=== PATIENT | male | born 1975 | race Caucasian/White ===

== ENCOUNTER → 2016-12-28 | Outpatient (CLI) | payer BC ==
[~2016-12-28] MED LIST: CIPR500T19; PERC7.5T8; TUMS500C; TYLENOL #3
[2016-12-28 09:17] LABS: BASO # 0.1 10^3/uL (0.0-0.2); BASO % 0.6 % (0.0-1.0); EOS # 0.2 10^3/uL (0.0-0.50); IMMATURE GRANULOCYTE % 0.4 % (0-0); LYMPH # 2.7 10^3/uL (1.5-4.5); LYMPH % 32.7 % (24.0-44.0); MEAN CORPUSCULAR HGB CONC 34.3 g/dl (32.0-36.5); MEAN CORPUSCULAR VOLUME 93.2 fl (80.0-96.0); MONO # 0.5 10^3/uL (0.0-0.8); MONO % 6.5 % (0.0-5.0); NEUTROPHILS # 4.7 10^3/uL (1.8-7.7); NEUTROPHILS % 57.8 % (36.0-66.0); PLATELET COUNT, AUTOMATED 304 10^3/uL (150-450); RED CELL DISTRIBUTION WIDTH 12.2 % (11.5-14.5); WHITE BLOOD COUNT 8.2 10^3/uL (4.0-10.0)
[2016-12-28 09:51] LABS: ALBUMIN 3.9 GM/DL (3.2-5.2); ALBUMIN/GLOBULIN RATIO 1.26 (1.00-1.93); ALKALINE PHOSPHATASE 73 U/L (45-117); ALT/SGPT 57 U/L (12-78); ANION GAP 5 MEQ/L (8-16); AST/SGOT 23 U/L (7-37); BILIRUBIN,TOTAL 0.4 MG/DL (0.2-1.0); BLOOD UREA NITROGEN 11 MG/DL (7-18); CALCIUM LEVEL 9.1 MG/DL (8.5-10.1); CARBON DIOXIDE LEVEL 29 MEQ/L (21-32); CHLORIDE LEVEL 107 MEQ/L (98-107); CHOLESTEROL LEVEL 171 MG/DL (<200); CREATININE FOR GFR 0.87 MG/DL (0.70-1.30); FREE T4 0.89 NG/DL (0.76-1.46); GLOMERULAR FILTRATION RATE > 60.0 (>60); GLUCOSE, FASTING 91 MG/DL (70-105); POTASSIUM SERUM 4.8 MEQ/L (3.5-5.1); SODIUM LEVEL 141 MEQ/L (136-145); TRIGLYCERIDES LEVEL 85 MG/DL (<150)
== END ==
LOC: M WUC 08:31
PROVIDERS: ATTEND Nurse Practitioner Family
DX: R53.83 Other fatigue (principal); Z13.220 Encounter for screening for lipoid disorders; I10 Essential (primary) hypertension

== ENCOUNTER → 2017-04-20 | Outpatient (CLI) | payer BC ==
[2017-04-20 17:25] LABS: TOTAL 25(OH) VITAMIN D 20.3 NG/ML (30.0-100.0)
== END ==
LOC: M WUC 10:45
DX: E55.9 Vitamin D deficiency, unspecified (principal)

== ENCOUNTER → 2017-10-24 | Outpatient (CLI) | payer BC ==
[2017-10-24 13:39] LABS: BASO % 0.5 % (0.0-1.0); EOS # 0.1 10^3/uL (0.0-0.50); EOS % 1.1 % (0.0-3.0); HEMATOCRIT 46.3 % (42.0-52.0); HEMOGLOBIN 15.9 g/dl (13.5-17.5); IMMATURE GRANULOCYTE % 0.5 % (0-3.0); LYMPH # 2.4 10^3/uL (1.5-4.5); LYMPH % 28.1 % (24.0-44.0); MEAN CORPUSCULAR HEMOGLOBIN 31.7 pg (27.0-33.0); MEAN CORPUSCULAR HGB CONC 34.3 g/dl (32.0-36.5); MEAN CORPUSCULAR VOLUME 92.4 fl (80.0-96.0); MONO # 0.5 10^3/uL (0.0-0.8); MONO % 6.1 % (0.0-5.0); NEUTROPHILS # 5.3 10^3/uL (1.8-7.7); NEUTROPHILS % 63.7 % (36.0-66.0); PLATELET COUNT, AUTOMATED 294 10^3/uL (150-450); RED BLOOD COUNT 5.01 10^6/uL (4.30-6.10); RED CELL DISTRIBUTION WIDTH 12.1 % (11.5-14.5); WHITE BLOOD COUNT 8.4 10^3/uL (4.0-10.0)
[2017-10-24 14:38] LABS: ALBUMIN 4.1 GM/DL (3.2-5.2); ALBUMIN/GLOBULIN RATIO 1.21 (1.00-1.93); ALKALINE PHOSPHATASE 80 U/L (45-117); ALT/SGPT 38 U/L (12-78); ANION GAP 10 MEQ/L (8-16); AST/SGOT 19 U/L (7-37); BILIRUBIN,TOTAL 0.5 MG/DL (0.2-1.0); BLOOD UREA NITROGEN 12 MG/DL (7-18); CARBON DIOXIDE LEVEL 28 MEQ/L (21-32); CHLORIDE LEVEL 104 MEQ/L (98-107); CREATININE FOR GFR 0.84 MG/DL (0.70-1.30); GLOMERULAR FILTRATION RATE > 60.0 (>60); GLUCOSE, FASTING 85 MG/DL (70-100); POTASSIUM SERUM 4.6 MEQ/L (3.5-5.1); SODIUM LEVEL 142 MEQ/L (136-145); TOTAL 25(OH) VITAMIN D 50.4 NG/ML (30.0-100.0); TOTAL PROTEIN 7.5 GM/DL (6.4-8.2)
== END ==
LOC: M WUC 10:46
DX: I10 Essential (primary) hypertension (principal); E55.9 Vitamin D deficiency, unspecified
CPT/HCPCS: 80053

== ENCOUNTER → 2018-04-25 | Outpatient (CLI) | payer BC ==
[2018-04-25 16:59] LABS: BASO % 0.3 % (0.0-1.0); EOS # 0.1 10^3/uL (0.0-0.50); HEMATOCRIT 45.1 % (42.0-52.0); HEMOGLOBIN 15.3 g/dl (13.5-17.5); LYMPH # 2.9 10^3/uL (1.5-4.5); LYMPH % 25.4 % (24.0-44.0); MEAN CORPUSCULAR HEMOGLOBIN 31.5 pg (27.0-33.0); MEAN CORPUSCULAR HGB CONC 33.9 g/dl (32.0-36.5); MEAN CORPUSCULAR VOLUME 92.8 fl (80.0-96.0); MONO # 0.8 10^3/uL (0.0-0.8); MONO % 6.7 % (0.0-5.0); NEUTROPHILS # 7.6 10^3/uL (1.8-7.7); NEUTROPHILS % 66.1 % (36.0-66.0); PLATELET COUNT, AUTOMATED 323 10^3/uL (150-450); RED BLOOD COUNT 4.86 10^6/uL (4.30-6.10); WHITE BLOOD COUNT 11.5 10^3/uL (4.0-10.0)
[2018-04-25 17:19] LABS: ALBUMIN 3.8 GM/DL (3.2-5.2); ALT/SGPT 41 U/L (12-78); BILIRUBIN,TOTAL 0.3 MG/DL (0.2-1.0); BLOOD UREA NITROGEN 14 MG/DL (7-18); CARBON DIOXIDE LEVEL 29 MEQ/L (21-32); CHLORIDE LEVEL 106 MEQ/L (98-107); CREATININE FOR GFR 0.92 MG/DL (0.70-1.30); GLOMERULAR FILTRATION RATE > 60.0 (>60); GLUCOSE, FASTING 93 MG/DL (70-100); POTASSIUM SERUM 4.4 MEQ/L (3.5-5.1); SODIUM LEVEL 142 MEQ/L (136-145); TOTAL 25(OH) VITAMIN D 26.6 NG/ML (30.0-100.0); TOTAL PROTEIN 6.7 GM/DL (6.4-8.2)
== END ==
LOC: M WUC 14:26
PROVIDERS: ATTEND Nurse Practitioner Family
DX: I10 Essential (primary) hypertension (principal); E55.9 Vitamin D deficiency, unspecified

== ENCOUNTER 2019-10-01 11:13 | Inpatient (IN) | payer BC ==
[~2019-10-01] VITALS: Ht 170.2 cm; Wt 132.5 kg
[2019-10-01] MEDS ORDERED: [UNRECOGNIZED DRUG - REMARK] (11:23)
[2019-10-01 12:21] LABS: BASO % 0.4 % (0.0-1.0); EOS # 0.1 10^3/uL (0.0-0.5); EOS % 1.3 % (0.0-3.0); HEMATOCRIT 47.9 % (42.0-52.0); HEMOGLOBIN 16.2 g/dl (13.5-17.5); LYMPH # 1.1 10^3/uL (1.5-5.0); LYMPH % 13.1 % (24.0-44.0); MEAN CORPUSCULAR HEMOGLOBIN 31.9 pg (27.0-33.0); MEAN CORPUSCULAR HGB CONC 33.8 g/dl (32.0-36.5); MEAN CORPUSCULAR VOLUME 94.3 fl (80.0-96.0); MONO # 0.5 10^3/uL (0.0-0.8); MONO % 6.2 % (0.0-5.0); NEUTROPHILS # 6.7 10^3/uL (1.5-8.5); NEUTROPHILS % 78.5 % (36.0-66.0); PLATELET COUNT, AUTOMATED 259 10^3/uL (150-450); RED BLOOD COUNT 5.08 10^6/uL (4.30-6.10); WHITE BLOOD COUNT 8.5 10^3/uL (4.0-10.0)
[2019-10-01 12:44] LABS: INR 0.96
[2019-10-01 12:45] LABS: PARTIAL THROMBOPLASTIN TIME 29.8 SECONDS (25.0-38.4)
[2019-10-01 13:22] LABS: ALT/SGPT 1097 U/L (12-78); BLOOD UREA NITROGEN 7 MG/DL (7-18); CALCIUM LEVEL 9.2 MG/DL (8.5-10.1); CARBON DIOXIDE LEVEL 26 MEQ/L (21-32); CHLORIDE LEVEL 104 MEQ/L (98-107); CREATININE FOR GFR 0.87 MG/DL (0.70-1.30); GLOMERULAR FILTRATION RATE > 60.0 (>60); GLUCOSE, FASTING 120 MG/DL (70-100); POTASSIUM SERUM 4.1 MEQ/L (3.5-5.1); SODIUM LEVEL 136 MEQ/L (136-145)
[2019-10-01 13:23] LABS: ALBUMIN 3.8 GM/DL (3.2-5.2); BILIRUBIN,DIRECT 4.4 MG/DL (0.0-0.2); BILIRUBIN,TOTAL 5.7 MG/DL (0.2-1.0); CHOLESTEROL LEVEL 163 MG/DL (<200); CHOLESTEROL RISK RATIO 4.657 (<5); HDL CHOLESTEROL 35 MG/DL (>40); LDL CHOLESTEROL 96 MG/DL (<100); LIPASE 70 U/L (73-393); NON-HDL-C 128 MG/DL; TOTAL PROTEIN 7.7 GM/DL (6.4-8.2); TRIGLYCERIDES LEVEL 159 MG/DL (<150)
--- NOTE | 2019-10-01 13:23 | REPVR ---
PROCEDURE INFORMATION: Exam: US Abdomen, Limited; Right Upper Quadrant Exam date and time: 10/01/2019 12:31 PM Age: 44 years old Clinical indication: Abdominal pain; Additional info: Upper abdominal pain; ? Pancreatitis TECHNIQUE: Imaging protocol: US abdomen. Real time ultrasound with image documentation. Limited exam focused on the right upper quadrant. COMPARISON: No relevant prior studies available. FINDINGS: Liver: Liver echogenicity is overall hyperechoic suggesting diffuse fatty liver change or chronic liver disease. No focal area of abnormal echogenicity. Gallbladder: The gallbladder has been surgically removed. Common bile duct: The common bile duct is dilated at 11 mm, but this is most likely within expected limits given prior cholecystectomy. Pancreas: Visualized pancreas is unremarkable. Pancreas is mostly obscured by shadowing bowel gas. Right kidney: The right kidney measures 13.3 x 5.9 x 6.3 cm. No hydronephrosis. No shadowing echogenic foci to suggest renal calculi. Intraperitoneal space: No free fluid. IMPRESSION: 1. Findings suggesting diffuse fatty liver change or chronic liver disease. 2. Dilated common bile duct at 11 mm, most likely within expected limits given prior cholecystectomy. Comparison CT abdomen and pelvis from 09/23/2007 and comparison abdominal ultrasound from 09/22/2007 have been requested but are unavailable on PACs. Electronically signed by: Hilda Seo On 10/01/2019 13:23:28 PM
[2019-10-01] MEDS ORDERED: FLON1SPR NARES (15:43)
[2019-10-01] MEDS ORDERED: CETI-24 PO (15:43)
[2019-10-01] MEDS ORDERED: [UNRECOGNIZED DRUG - OTHER] PO (15:43)
[2019-10-01] MEDS ORDERED: B-12100021 PO (15:43)
[2019-10-01] MEDS ORDERED: VITA100016 PO (15:43)
[2019-10-01] MEDS: LR 1,000 ML IV SCH ×2 (15:44→20:30)
--- NOTE | 2019-10-01 17:03 | HPEPDOC ---
[facility] Medical History & Physical Date of Admission Oct 01, 2019 Date of Service: Oct 01, 2019 Attending Physician: MALIKA BEYER MD History and Physical CHIEF COMPLAINT: Epigastic abdominal pain HISTORY OF PRESENT ILLNESS: Mr. Guerrero is a pleasant 44 yo man with a hx of open cholecystectomy and CBD stenting who presented to [facility] ED today with a 2 days history of moderate epigastric pain, pale stools and darkened urine. He further reports worsening diffuse pruritis. He denies chest pain, fevers, chills, n/v/d. He denies hemoptysis or blood in stool. He denies excess or chronic etoh use. PAST MEDICAL HISTORY: 1. acute cholecystitis PAST SURGICAL HISTORY: 1. open cholecystecomy 2. CBD stent placement SOCIAL HISTORY: Chews tobacco Occasional etoh use FAMILY HISTORY: Mother - DM2 Father - malignancy, unable to specify ALLERGIES: Please see below. REVIEW OF SYSTEMS: CONSTITUTIONAL: malaise HEENT: none CARDIOVASCULAR: RESPIRATORY: none. GASTROINTESTINAL: RUQ and epigastric abdominal pain 07/17. Pale, beige stool GENITOURINARY: dark urine. SKIN: diffuse pruritis. MUSCULOSKELETAL: none. NEUROLOGICAL: none. PSYCHIATRIC: none. ENDOCRINE: none. HEMATOLOGIC/LYMPHATIC: none. HOME MEDICATIONS: Please see below. PHYSICAL EXAMINATION: VITAL SIGNS: please see below. GENERAL APPEARANCE: NAD. HEENT: mild scleral icterus. PERRLA. CARDIOVASCULAR: RRR, normal S1, S2. LUNGS: CTAB, good inspiratory effort. ABDOMEN: RUQ open cholecystectomy scar, laparoscopic port sca. Pain to palpation of RUQ. BS+. Obese abdomen MUSCULOSKELETAL: normal ROM, no joint deformity. EXTREMITIES: no edema NEUROLOGICAL: AAO x 3, no focal neurological deficits. PSYCHIATRIC: calm, pleasant, cooperative. LABORATORY DATA: See below. IMAGING: Liver Ultrasound on 10/01/19 IMPRESSION: 1. Findings suggesting diffuse fatty liver change or chronic liver disease. 2. Dilated common bile duct at 11 mm, most likely within expected limits given prior cholecystectomy. MICROBIOLOGY: Please see below. ASSESSMENT: . PLAN: 1. Conjugated hyperbilirubinemia: suspect common bile duct obstruction. GI consulted. Plan for MRI liver with MRCP protocol. Planned for ERCP tomorrow. Clear liquids until midnight, NPO after. Pain control morphine 2 mg IV prn q6h. [place] 5/325 mg q6 prn. DVT ppx: lovenox 40 mg SC Vital Signs Vital Signs Date Time Temp Pulse Resp B/P (MAP) Pulse Ox O2 Delivery O2 Flow Rate FiO2 10/01/19 16:40 99.2 81 18 172/95 (120) 96 Room Air Laboratory Data Labs 24H Laboratory Tests 2 10/01/19 11:33: Urine Color [place], Urine Appearance CLEAR, Urine pH 6.0, Urine Specific [place] 1.016, Urine Protein NEGATIVE, Urine Glucose (UA) NEGATIVE, Urine Ketones TRACEH, Urine Blood NEGATIVE, Urine Nitrite NEGATIVE, Urine Bilirubin 2+H, Urine Urobilinogen 4.0H, Urine Leukocyte Esterase NEGATIVE, Urine WBC (Auto) 4H, Urine RBC (Auto) 3, Urine Hyaline Casts (Auto) 0, Urine Bacteria (Auto) NEGATIVE, Urine Squamous Epithelial Cells 3, Urine Mucus (Auto) SMALL, Urine Sperm (Auto) 10/01/19 11:48: Immature Granulocyte % (Auto) 0.5, Neutrophils (%) (Auto) 78.5H, Lymphocytes (%) (Auto) 13.1L, Monocytes (%) (Auto) 6.2H, Eosinophils (%) (Auto) 1.3, Basophils (%) (Auto) 0.4, Neutrophils # (Auto) 6.7, Lymphocytes # (Auto) 1.1L, Monocytes # (Auto) 0.5, Eosinophils # (Auto) 0.1, Basophils # (Auto) 0.0, Nucleated Red Blood Cells % (auto) 0.0, Prothrombin Time 13.0, Prothromb Time International Ratio 0.96, Activated Partial Thromboplast Time 29.8, Anion Gap 6L, Glomerular Filtration Rate > 60.0, Calcium Level 9.2, Total Bilirubin 5.7H, Direct Bilirubin 4.4H, Aspartate Amino Transf (AST/SGOT) 330H, Alanine Aminotransferase (ALT/SGPT) 1097H, Alkaline Phosphatase 272H, Total Protein 7.7, Albumin 3.8, Albumin/Globulin Ratio 1.0, Triglycerides Level 159H, Total Cholesterol 163, LDL Cholesterol 96, Non-HDL Cholesterol (LDL + VLDL) 128, Total HDL Cholesterol 35L, Cholesterol/HDL Ratio 4.657, Lipase 70L CBC/BMP Laboratory Tests 10/01/19 11:48 Home Medications Scheduled Cetirizine HCl (Cetirizine HCl) 10 Mg Tablet, 10 MG PO DAILY Cholecalciferol (Vitamin D3) (Vitamin D3) 25 Mcg Tablet, 2,000 UNIT PO DAILY Cyanocobalamin (Vitamin B-12) (B-12) 1,000 Mcg Tablet, 1,000 MCG PO DAILY Fluticasone Propionate (Flonase Allergy Relief) 9.9 Ml [place].susp, 2 SPRAY NARES DAILY [Pancreatic Otc] , 1 CAP PO WM Allergies Coded Allergies: No Known Allergies (Verified , 08/18/07) A-FIB/CHADSVASC A-FIB History Current/History of A-Fib/PAF?: No Current PO Anticoag Therapy: No MALIKA BEYER MD Oct 01, 2019 17:02
[2019-10-01] MEDS ORDERED: PROHANCE 279.3MG/ML 5ML VIAL As Ordered ONE (17:16)
[2019-10-01] MEDS ORDERED: PROHANCE 279.3MG/ML 15ML VIAL As Ordered ONE (17:17)
--- NOTE | 2019-10-01 18:13 | REPVR ---
PROCEDURE INFORMATION: Exam: MR Abdomen Without and With Contrast Exam date and time: 10/01/2019 5:26 PM Age: 44 years old Clinical indication: Abnormal findings; Abnormal radiologic finding of the abdomen; Radiologic exam and body structure: Ultrasound; Patient HX: F/u tp u/s on pacs; Additional info: Per gi, concern for bile duct stricture TECHNIQUE: Imaging protocol: MR of the abdomen without and with intravenous contrast. Contrast material: PROHANCE; Contrast volume: 20 ml; Contrast route: INTRAVENOUS (IV); COMPARISON: LIVER US 10/01/2019 12:14 PM FINDINGS: Liver: Mild central intrahepatic biliary ductal dilatation, stable. Mild left lobe hepatic periductal enhancement. Mild nonspecific periportal, gallbladder fossa, and periduodenal edema, stable. The liver measures 23.5 cm in the midclavicular plane. Moderately decreased signal of the liver on out of phase imaging relative to in phase imaging. Gallbladder and bile ducts: The gallbladder is surgically absent. The extrahepatic bile ducts are dilated, measuring 9.8 mm. No ductal calculus. Previous left lobe hepatic biliary ductal drain not identified. Previously demonstrated distal bile duct stent not identified. Pancreas: No pancreatic mass. No ductal dilation. Spleen: Unremarkable. No splenomegaly. Adrenals: Unremarkable. No mass. Kidneys and ureters: Unremarkable. No solid mass. No hydronephrosis. Stomach and bowel: Visualized stomach and intestines are unremarkable. Intraperitoneal space: No free fluid. Arteries: No abdominal aortic aneurysm. Lymph nodes: Leny hepatis lymph node measuring 10.8 mm short axis, stable. Bones/joints: Unremarkable. Soft tissues: Unremarkable. IMPRESSION: 1. Prior cholecystectomy. 2. Stable mild intrahepatic and extrahepatic biliary ductal dilatation, no extrahepatic biliary ductal calculus or stricture identified. 3. Mild left lobe hepatic periductal enhancement. Cholangitis is difficult to exclude. Clinical correlation is recommended. 4. Mild nonspecific periportal, gallbladder fossa, and periduodenal edema, stable. 5. Mild hepatomegaly. 6. Fatty infiltration of the liver. Electronically signed by: Zelalem Garcia On 10/01/2019 18:14:08 PM
[2019-10-01 18:40] VITALS: BP 180/108
[2019-10-01 18:55] VITALS: BP 147/65
[2019-10-01] MEDS ORDERED: MORPHINE 2 MG/ML 1ML VIAL (J2270) IV PRN (19:00)
[2019-10-01] MEDS ORDERED: NORCO, ANEXSIA 5/325MG TABLET (HYDROcodone/ACETAMINOPHEN) PO PRN (19:00)
[2019-10-01 20:00] VITALS: BP 117/68
[2019-10-02] VITALS (7 sets, daily range): BP systolic 126–154; BP diastolic 75–92
[2019-10-02] MEDS: LR 1,000 ML IV SCH ×4 (03:33→16:13)
[2019-10-02 06:31] LABS: BASO % 0.2 % (0.0-1.0); EOS # 0.1 10^3/uL (0.0-0.5); EOS % 1.6 % (0.0-3.0); HEMOGLOBIN 14.7 g/dl (13.5-17.5); LYMPH # 0.9 10^3/uL (1.5-5.0); MEAN CORPUSCULAR HEMOGLOBIN 31.7 pg (27.0-33.0); MEAN CORPUSCULAR HGB CONC 33.4 g/dl (32.0-36.5); MONO # 0.7 10^3/uL (0.0-0.8); MONO % 8.8 % (0.0-5.0); NEUTROPHILS # 6.3 10^3/uL (1.5-8.5); NEUTROPHILS % 77.9 % (36.0-66.0); PLATELET COUNT, AUTOMATED 237 10^3/uL (150-450); RED BLOOD COUNT 4.63 10^6/uL (4.30-6.10); WHITE BLOOD COUNT 8.1 10^3/uL (4.0-10.0)
[2019-10-02 07:08] LABS: ALBUMIN 3.2 GM/DL (3.2-5.2); ALT/SGPT 699 U/L (12-78); BILIRUBIN,DIRECT 4.5 MG/DL (0.0-0.2); BILIRUBIN,TOTAL 5.3 MG/DL (0.2-1.0); BLOOD UREA NITROGEN 5 MG/DL (7-18); CALCIUM LEVEL 8.7 MG/DL (8.5-10.1); CARBON DIOXIDE LEVEL 26 MEQ/L (21-32); CHLORIDE LEVEL 106 MEQ/L (98-107); GLOMERULAR FILTRATION RATE > 60.0 (>60); GLUCOSE, FASTING 100 MG/DL (70-100); POTASSIUM SERUM 3.9 MEQ/L (3.5-5.1); SODIUM LEVEL 140 MEQ/L (136-145); TOTAL PROTEIN 6.5 GM/DL (6.4-8.2)
[2019-10-02] MEDS ORDERED: ENOXAPARIN 40MG/0.4ML SYRINGE (J1650 PER 10MG) SC SCH (09:00)
[2019-10-02] MEDS: PIPERACILLIN/TAZOBACTAM SOD 3.375 GM in D5W MINI-BAG PLUS 50 ML IV SCH ×3 (09:02→20:35)
[2019-10-02 11:40] LABS: C REACTIVE PROTEIN QUANTITATIV 4.48 MG/DL (0.00-0.30)
[2019-10-02 12:03] LABS: ERYTHROCYTE SEDIMENTATION RATE 29 mm/hr (0-15)
--- NOTE | 2019-10-02 12:08 | IPNPDOC ---
Text Note Date of Service The patient was seen on 10/02/19. NOTE Subjective: Pt states abd pain feeling better. Had similar episode a few weeks ago that improved on it's on. Denies CP/SOB/palpitations. No N/V. Had fevers last night. Objective: Vitals: (see below) General: No acute distress, laying comfortably in bed. HEENT: Moist mucous membranes. Neck: No JVD or lymphadenopathy Cardiac: RRR, No murmurs Pulm: Clear to auscultation b/l. No wheezing, rhonchi Abd: NT/ND + BS Ext: No edema or cyanosis Labs (see below) Images: MRCP IMPRESSION: 1. Prior cholecystectomy. 2. Stable mild intrahepatic and extrahepatic biliary ductal dilatation, no extrahepatic biliary ductal calculus or stricture identified. 3. Mild left lobe hepatic periductal enhancement. Cholangitis is difficult to exclude. Clinical correlation is recommended. 4. Mild nonspecific periportal, gallbladder fossa, and periduodenal edema, stable. 5. Mild hepatomegaly. 6. Fatty infiltration of the liver. Assessment/Plan 1. Ascending Cholangitis - Start Zosyn. Check bld cx. WBC wnl. LFTs with obstructive pattern; planned for ERCP today with Dr. Hall. 2. H/o ERCP x [address] Mckee. remote history of complicated cholecystectomy in 2007, subsequently had CBD stenting by Dr. Mckee, external biliary drainage, and subsequently CBD stent removal in 2008, DVT prophy: Hold Lovenox today for possible ERCP. SCDs VS,Fishbone, I+O VS, Fishbone, I+O Laboratory Tests 10/02/19 06:05 Vital Signs Date Time Temp Pulse Resp B/P (MAP) Pulse Ox O2 Delivery O2 Flow Rate FiO2 10/02/19 06:09 19 Room Air 10/02/19 06:00 99.4 77 126/75 (92) 95 I&O- Last 24 Hours up to 6 AM 10/02/19 06:00 Intake Total 3330 ml Output Total 1550 ml Balance 1780 ml RAVIN CANCHOLA MD Oct 02, 2019 12:08
--- NOTE | 2019-10-02 16:45 | CR.PDOC ---
General Date of Consultation: Oct 02, 2019 Referring Provider: RAVIN CANCHOLA MD Attending Physician: LAINE SEQUEIRA MD Consultation Referring Physician / PCP: Dr. Canchola Reason for consult: Abnormal liver tests and epigastric pain. HPI: 44 year old male patient with remote history of complicated cholecystectomy in 2007, subsequently had CBD stenting by Dr. Mckee, external biliary drain age, and subsequently CBD stent removal in 2008, was admitted to [facility] ED for symptoms of sudden onset severe epigastric pain, which started on Tuesday, which woke him up from sleep and noticing pale stools and darkened urine. He further reports worsening diffuse pruritis. He denies chest pain, fevers vomiting but does report having loss of appetite and not eating much since Tuesday. Patient denies excess or chronic alcohol use or OTC medication use. He does report feeling short of breath due to pain. Pertinent Negative GI symptoms: Patient denies any vomiting, fever, hematemesis, rectal bleeding or melena. Patient denies any change in bowel habits. Review of systems: Head and neck: No swelling, lymph nodes. Chest: No shortness of breath, no chest pain, no palpitation. Abdomen: As above. Genitourinary: no burning micturition. CHANNEL PROGRAM MANAGER: No loss of consciousness, no focal weakness. Extremities: No leg swelling. Skin: No rash. Exam: Vitals: Reviewed. Noted overnight fever. HEENT: NC/ AT, pupil equal and reactive, no cervical lymphadenopathy, Respiratory: bilateral air entry. CVS: Heart sounds heard, no Murmurs, No pedal edema. Abdomen: Soft, non-distended, Non-tender, no rigidity, no guarding, no abdominal masses, normal bowel sounds, No visible hernias. CHANNEL PROGRAM MANAGER; No focal neurological deficits, moving all extremities. Prior Endoscopic work up: Reviewed. EGD -- none Colonoscopy: None ERCP x [address] Mckee. Labs: Reviewed. Radiology tests: Reviewed. Impression: -- Acute onset biliary colicky pain with documented fever in hospital, labs showing cholestasis DDxLikely Choledocholithiasis ( likely new stones in CBD) vs biliary stricture vs Cholangitis vs less likely tumor/ mass obstructing CBD. Recommendations: -- NPO for now. -- broad spectrum antibiotics. Agree with zosyn. -- Avoid NSAIDs. Pain management as per primary team. -- Obtain MRI abdomen without and with contrast to rule out intra - abdominal masses and evaluate the biliary anatomy. -- Will schedule for ERCP based on the above and clinical course. -- Patient is educated about the procedure, indications, risks ( bleeding, infection, perforation, anesthesia risks, including ), benefits and all alternatives including conservative measures without any procedure. Patient verbalized understanding and consented for the procedure Vital Signs/I&O Vital Signs Date Time Temp Pulse Resp B/P (MAP) Pulse Ox O2 Delivery O2 Flow Rate FiO2 10/02/19 06:09 19 Room Air 10/02/19 06:00 99.4 77 126/75 (92) 95 I&O- Last 24 Hours up to 6 AM 10/02/19 06:00 Intake Total 3330 ml Output Total 1550 ml Balance 1780 ml Laboratory Data Labs 24H Laboratory Tests 2 10/02/19 06:05: Immature Granulocyte % (Auto) 0.5, Neutrophils (%) (Auto) 77.9H, Lymphocytes (%) (Auto) 11.0L, Monocytes (%) (Auto) 8.8H, Eosinophils (%) (Auto) 1.6, Basophils (%) (Auto) 0.2, Neutrophils # (Auto) 6.3, Lymphocytes # (Auto) 0.9L, Monocytes # (Auto) 0.7, Eosinophils # (Auto) 0.1, Basophils # (Auto) 0.0, Nucleated Red Blood Cells % (auto) 0.0, Erythrocyte Sedimentation Rate 29H, Anion Gap 8, Glomerular Filtration Rate > 60.0, Calcium Level 8.7, Total Bilirubin 5.3H, Direct Bilirubin 4.5H, Aspartate Amino Transf (AST/SGOT) 153H, Alanine Aminotransferase (ALT/SGPT) 699H, Alkaline Phosphatase 277H, C-Reactive Protein, Quantitative 4.48H, Total Protein 6.5, Albumin 3.2, Albumin/Globulin Ratio 1.0 CBC/BMP Laboratory Tests 10/02/19 06:05 Microbiology Microbiology 10/02/19 Blood Culture, Received Pending 10/02/19 Blood Culture, Received Pending 10/02/19 Respiratory Virus Panel (PCR) (BERRY) - Final, Complete Allergies Coded Allergies: No Known Allergies (Verified , 08/18/07) Home Medications Scheduled Cetirizine HCl (Cetirizine HCl) 10 Mg Tablet, 10 MG PO DAILY, (Reported) Cholecalciferol (Vitamin D3) (Vitamin D3) 25 Mcg Tablet, 2,000 UNIT PO DAILY, (Reported) Cyanocobalamin (Vitamin B-12) (B-12) 1,000 Mcg Tablet, 1,000 MCG PO DAILY, (Reported) Fluticasone Propionate (Flonase Allergy Relief) 9.9 Ml [place].susp, 2 SPRAY NARES DAILY, (Reported) [Pancreatic Otc] , 1 CAP PO WM, (Reported) LAINE SEQUEIRA MD Oct 02, 2019 16:45
[2019-10-02] MEDS ORDERED: propofoL 200 MG/20 ML VIAL As Ordered ONE (17:23)
[2019-10-02] MEDS ORDERED: ROCURONIUM BROMIDE 50 MG/5 ML VIAL As Ordered ONE (17:23)
[2019-10-02] MEDS ORDERED: LIDOCAINE 2% 100MG/5ML SDV (FOR ANES.) As Ordered ONE (17:23)
[2019-10-02] MEDS ORDERED: dexameTHASONE 4 MG/ML 1ML VIAL (J1100 PER 1MG) As Ordered ONE (17:24)
[2019-10-02] MEDS ORDERED: fentaNYL 100 MCG/2 ML INJECTION (J3010) As Ordered ONE (17:24)
[2019-10-02] MEDS ORDERED: ONDANSETRON 4MG/2ML VIAL As Ordered ONE (17:24)
[2019-10-02] MEDS ORDERED: MIDAZOLAM INJ 2MG/2ML VIAL (J2250 PER 1MG) As Ordered ONE (17:24)
[2019-10-02] MEDS ORDERED: ISOVUE-300 61% 50ML VIAL As Ordered ONE (17:49)
[2019-10-02] MEDS ORDERED: SUGAMMADEX SODIUM 500 MG/5 ML VIAL (BRIDION) As Ordered ONE (18:36)
[2019-10-02] MEDS ORDERED: ONDANSETRON 4MG/2ML VIAL IV PRN (19:30)
[2019-10-02] MEDS ORDERED: LR 1,000 ML IV SCH (19:30)
[2019-10-02] MEDS ORDERED: oxyCODONE 5MG TAB PO PRN (19:30)
[2019-10-02] MEDS ORDERED: fentaNYL 100 MCG/2 ML INJECTION (J3010) IV PRN (19:30)
[2019-10-03 00:15] VITALS: BP 135/85
[2019-10-03 01:15] VITALS: BP 136/84
[2019-10-03 02:00] VITALS: BP 137/85
[2019-10-03] MEDS: PIPERACILLIN/TAZOBACTAM SOD 3.375 GM in D5W MINI-BAG PLUS 50 ML IV SCH ×3 (02:16→15:30)
[2019-10-03 06:00] VITALS: BP 140/91
[2019-10-03 06:44] LABS: BASO % 0.1 % (0.0-1.0); EOS % 0.1 % (0.0-3.0); HEMATOCRIT 40.3 % (42.0-52.0); HEMOGLOBIN 13.6 g/dl (13.5-17.5); LYMPH # 0.8 10^3/uL (1.5-5.0); LYMPH % 9.8 % (24.0-44.0); MEAN CORPUSCULAR HEMOGLOBIN 32.3 pg (27.0-33.0); MEAN CORPUSCULAR HGB CONC 33.7 g/dl (32.0-36.5); MEAN CORPUSCULAR VOLUME 95.7 fl (80.0-96.0); MONO # 0.2 10^3/uL (0.0-0.8); NEUTROPHILS % 86.5 % (36.0-66.0); PLATELET COUNT, AUTOMATED 247 10^3/uL (150-450); RED BLOOD COUNT 4.21 10^6/uL (4.30-6.10)
[2019-10-03 07:10] LABS: ALBUMIN 3.3 GM/DL (3.2-5.2); ALT/SGPT 559 U/L (12-78); BILIRUBIN,TOTAL 3.6 MG/DL (0.2-1.0); BLOOD UREA NITROGEN 6 MG/DL (7-18); CALCIUM LEVEL 9.1 MG/DL (8.5-10.1); CARBON DIOXIDE LEVEL 30 MEQ/L (21-32); CHLORIDE LEVEL 105 MEQ/L (98-107); CREATININE FOR GFR 0.75 MG/DL (0.70-1.30); GLOMERULAR FILTRATION RATE > 60.0 (>60); GLUCOSE, FASTING 112 MG/DL (70-100); POTASSIUM SERUM 4.1 MEQ/L (3.5-5.1); SODIUM LEVEL 139 MEQ/L (136-145); TOTAL PROTEIN 6.9 GM/DL (6.4-8.2)
[2019-10-03] MEDS ORDERED: ENOXAPARIN 40MG/0.4ML SYRINGE (J1650 PER 10MG) SC SCH (09:00)
--- NOTE | 2019-10-03 11:32 | IPNPDOC ---
Text Note Date of Service The patient was seen on 10/03/19. NOTE Subjective: Pt feels well.N/V/Abd pain. Tolerated ERCP well. Denies CP/SOB/p alpitations. Objective: Vitals: (see below) General: No acute distress, laying comfortably in bed. HEENT: Moist mucous membranes. Neck: No JVD or lymphadenopathy Cardiac: RRR, No murmurs Pulm: Clear to auscultation b/l. No wheezing, rhonchi Abd: NT/ND + BS Ext: No edema or cyanosis Labs (see below) Images: MRCP IMPRESSION: 1. Prior cholecystectomy. 2. Stable mild intrahepatic and extrahepatic biliary ductal dilatation, no extrahepatic biliary ductal calculus or stricture identified. 3. Mild left lobe hepatic periductal enhancement. Cholangitis is difficult to exclude. Clinical correlation is recommended. 4. Mild nonspecific periportal, gallbladder fossa, and periduodenal edema, stable. 5. Mild hepatomegaly. 6. Fatty infiltration of the liver. Assessment/Plan 1. Ascending Cholangitis - Cont Zosyn. Bld cx negative thus far. WBC wnl. LFTs improving; s/p ERCP with sphincterotomy/stent 10/[address] Hall. tolerating current diet. 2. H/o ERCP x [address] Mckee. remote history of complicated cholecystectomy in 2007, subsequently had CBD stenting by Dr. Mckee, external biliary drainage, and subsequently CBD stent removal in 2008, DVT prophy: Hold Lovenox today for now given ercp. SCDs Advance diet per GI; likely for d/c in 24-48 hr if continues to improve. VS,Fishbone, I+O VS, Fishbone, I+O Laboratory Tests 10/03/19 06:03 Vital Signs Date Time Temp Pulse Resp B/P (MAP) Pulse Ox O2 Delivery O2 Flow Rate FiO2 10/03/19 06:00 98.2 52 16 140/91 (107) 97 Room Air 10/02/19 19:25 2 10/02/19 19:08 100 I&O- Last 24 Hours up to 6 AM 10/03/19 05:59 Intake Total 5670 ml Output Total 4000 ml Balance 1670 ml RAVIN CANCHOLA MD Oct 03, 2019 11:32
[2019-10-03 14:00] VITALS: BP 144/83
[2019-10-03] MEDS ORDERED: CIPR-249 PO (15:19)
[2019-10-03] MEDS ORDERED: FLAG500T PO (15:19)
--- NOTE | 2019-10-17 11:26 | ROOR ---
Patient Name: Dashawn Guerrero Procedure Date: 10/02/2019 6:13 PM Date of : 1975 Age: 44 Room: Main OR Gender: Male Note Status: Finalized Procedure: ERCP Indications: For therapy of ascending cholangitis Providers: Phillip Hall MD Referring MD: 2. Inpatient 2. Inpatient Requesting Provider: Medicines: Monitored Anesthesia Care Complications: No immediate complications. Procedure: Pre-Anesthesia Assessment: - Prior to the procedure, a History and Physical was performed, and patient medications and allergies were reviewed. The patient is competent. The risks and benefits of the procedure and the sedation options and risks were discussed with the patient. All questions were answered and informed consent was obtained. Patient identification and proposed procedure were verified by the physician, the nurse and the anesthesiologist in the procedure room. Mental Status Examination: alert and oriented. Airway Examination: normal oropharyngeal airway and neck mobility. Respiratory Examination: clear to auscultation. CV Examination: normal. Prophylactic Antibiotics: The patient does not require prophylactic antibiotics. Prior Anticoagulants: The patient has taken no previous anticoagulant or antiplatelet agents. ASA Grade Assessment: III - A patient with severe systemic disease. After reviewing the risks and benefits, the patient was deemed in satisfactory condition to undergo the procedure. The anesthesia plan was to use monitored anesthesia care (MAC). Immediately prior to administration of medications, the patient was re-assessed for adequacy to receive sedatives. The heart rate, respiratory rate, oxygen saturations, blood pressure, adequacy of pulmonary ventilation, and response to care were monitored throughout the procedure. The physical status of the patient was re-assessed after the procedure. The Duodenoscope was introduced through the mouth, and advanced to the duodenum and used to inject contrast into the bile duct. The ERCP was accomplished without difficulty. The patient tolerated the procedure well. Findings: A associate professor physician film of the abdomen was obtained. Surgical clips, consistent with a previous cholecystectomy, were seen in the area of the right upper quadrant of the abdomen. The esophagus was successfully intubated under direct vision without detailed examination of the pharynx, larynx, and associated structures, and upper GI tract. The upper GI tract was grossly normal. Pus was emerging from the major papilla. The major papilla was bulging. A 0.035 inch x 260 cm straight Hydra Jagwire was passed into the biliary tree. The short-nosed traction sphincterotome was passed over the guidewire and the bile duct was then deeply cannulated. Contrast was injected. I personally interpreted the bile duct images. Ductal flow of contrast was adequate. Image quality was adequate. Contrast extended to the entire biliary tree. The main bile duct was diffusely dilated, with an obstruction. The largest diameter was 10 mm. The lower third of the main bile duct contained filling defect(s) thought to be a stone. Biliary sphincterotomy was made with a traction (standard) sphincterotome using ERBE electrocautery. There was no post-sphincterotomy bleeding. The biliary tree was swept with a 10 mm balloon starting at the bifurcation. One stone was removed. No stones remained. Pus was swept from the duct. One 10 mm by 8 cm covered metal stent was placed into the common bile duct. Bile, clear fluid and pus flowed through the stent. The stent was in good position. Occlusion cholangiogram at the end of the procedure did not show any residual filling defects. Pancreatic duct was neither cannulated nor opacified. Impression: - Pus was seen in the major papilla. - The major papilla appeared to be bulging. - A filling defect consistent with a stone was seen on the cholangiogram. - The entire main bile duct was dilated, with an obstruction. - Choledocholithiasis was found. Complete removal was accomplished by biliary sphincterotomy and balloon extraction. - A biliary sphincterotomy was performed. - The biliary tree was swept and pus was found. - One covered metal stent was placed into the common bile duct. Recommendation: - The patient will be observed post-procedure, until all discharge criteria are met. - Avoid aspirin and nonsteroidal anti-inflammatory medicines. - Patient has a contact number available for emergencies. The signs and symptoms of potential delayed complications were discussed with the patient. Return to normal activities tomorrow. Written discharge instructions were provided to the patient. - Clear liquid diet for 1 day, then advance as tolerated to high fiber diet and low fat diet. - Use broad spectrum antibiotics for 7 days. - Repeat ERCP in 4 months to remove stent. - Return to GI clinic in [facility] (address [address], [address], [place] [address]) in 4 -- 6 weeks. Please call GI clinic @ [phone] for apppointment date and time. - Return to primary care physician. Phillip Hall MD Phillip Hall MD 10/02/2019 7:14:48 PM Electronically signed by Phillip Hall MD Number of Addenda: 0 Note Initiated On: 10/02/2019 6:13 PM Estimated Blood Loss: Estimated blood loss: none.
--- NOTE | 2019-11-02 13:01 | REP ---
ERCP EXAMINATION CLINICAL: History of dilated common bile duct. TECHNIQUE: Intraoperative fluoroscopic imaging using portable C-arm technique from ERCP examination. FINDINGS: Images demonstrate a moderately dilated common bile duct and subsequent common bile duct stent placement. Lumen appears normal and without obvious filling defect or areas of stenosis/obstruction. Total fluoroscopic time: 1 minute 4 seconds. IMPRESSION: ERCP examination images demonstrating satisfactory common bile duct (CBD) stent placement. [facility]
== END 2019-10-03 16:19 | disposition home or self-care (01) ==
LOC: M ED 11:13 → M ED INP 16:47 → M MSPAV 18:32
PROVIDERS: ADMIT Family Medicine; ATTEND Internal Medicine
PROC: 0F798DZ Dilation of Common Bile Duct with Intraluminal Device, Via Natural or Artificial Opening Endoscopic (ICD-10-PCS; 2019-10-02)
PROC: 0FC98ZZ Extirpation of Matter from Common Bile Duct, Via Natural or Artificial Opening Endoscopic (ICD-10-PCS; principal; 2019-10-02 15:00)
DX: K80.31 Calculus of bile duct with cholangitis, unspecified, with obstruction (principal); K76.0 Fatty (change of) liver, not elsewhere classified; F17.220 Nicotine dependence, chewing tobacco, uncomplicated; Z90.49 Acquired absence of other specified parts of digestive tract; Z79.899 Other long term (current) drug therapy

== ENCOUNTER → 2019-10-11 | Outpatient (REF) | payer BC ==
[~2019-10-11] MED LIST changes: +B-12100021 PO; +CETI-24 PO; +CIPR-249 PO; +FLAG500T PO; +FLON1SPR NARES; +VITA100016 PO; +[UNRECOGNIZED DRUG - OTHER] PO; +[UNRECOGNIZED DRUG - REMARK]
[2019-10-11 13:45] LABS: HEMATOCRIT 46.2 % (42.0-52.0); HEMOGLOBIN 15.5 g/dl (13.5-17.5); MEAN CORPUSCULAR HEMOGLOBIN 32.3 pg (27.0-33.0); MEAN CORPUSCULAR HGB CONC 33.5 g/dl (32.0-36.5); MEAN CORPUSCULAR VOLUME 96.3 fl (80.0-96.0); PLATELET COUNT, AUTOMATED 392 10^3/uL (150-450); WHITE BLOOD COUNT 9.8 10^3/uL (4.0-10.0)
[2019-10-11 14:53] LABS: ALBUMIN 3.6 GM/DL (3.2-5.2); ALT/SGPT 157 U/L (12-78); BILIRUBIN,TOTAL 0.6 MG/DL (0.2-1.0); BLOOD UREA NITROGEN 12 MG/DL (7-18); CARBON DIOXIDE LEVEL 27 MEQ/L (21-32); CHLORIDE LEVEL 107 MEQ/L (98-107); CREATININE FOR GFR 0.95 MG/DL (0.70-1.30); GLOMERULAR FILTRATION RATE > 60.0 (>60); GLUCOSE, FASTING 118 MG/DL (70-100); POTASSIUM SERUM 4.7 MEQ/L (3.5-5.1); SODIUM LEVEL 140 MEQ/L (136-145); TOTAL PROTEIN 7.1 GM/DL (6.4-8.2)
== END ==
LOC: M SFHCADAM 12:51
PROVIDERS: ATTEND Physician Assistant
DX: R94.5 Abnormal results of liver function studies (principal)

== ENCOUNTER → 2019-11-05 | Outpatient (CLI) | payer BC ==
--- NOTE | 2019-11-09 15:12 | ECHO ---
DATE OF PROCEDURE: 11/05/2019 Height: 172 cm Weight: 127 kg REFERRING PHYSICIAN: PRINCESS Payne INDICATION: Abnormal electrocardiogram (EKG). MEASUREMENTS: IV 1.1 LV 5.3 LVPW 1.1 LA 4.0 Aorta 3.5 IVC 1.0 Mitral E wave velocity 81, A wave 69 E prime septal 8.9 E prime lateral 11.0 FINDINGS: The study is of acceptable technical quality especially considering the patient's body habitus. The patient is in sinus rhythm. Left ventricle is of normal size and has normal contractility, estimated left ventricular ejection fraction (LVEF) 65 to 70%. No segmental wall motion abnormalities are noted. Right ventricle also appear normal. Left atrium is borderline enlarged. Right atrium appears normal size. Mitral, aortic and tricuspid valves are well seen and appear normal. Pulmonic valve was not well seen. No pericardial effusion is noted. Inferior vena cava is normal size and appropriately collapses with inspiration indicative of normal central venous pressure. Aortic root, aortic arch and visualized segment of abdominal aorta appear normal. Doppler interrogation reveals competent aortic and mitral valves. There is trace tricuspid insufficiency, but quality of TR jet was poor to assess pulmonary artery pressure. Mitral inflow pattern and tissue Doppler imaging of mitral annulus reveal normal diastolic function. CONCLUSIONS: 1. Study is of acceptable technical quality, the patient is in sinus rhythm. 2. Normal LV size with preserved LV systolic and diastolic function. 3. No significant valvular disease. 4. Normal central venous pressure. 5. Unable to estimate pulmonary artery pressure, but no signs to suggest pulmonary hypertension. 6. No findings to explain abnormal electrocardiogram (EKG). [facility]
== END ==
LOC: M CARPUL 08:20
PROVIDERS: ATTEND Physician Assistant
DX: R93.1 Abnormal findings on diagnostic imaging of heart and coronary circulation (principal)

== ENCOUNTER → 2019-11-30 | Outpatient (REF) | payer BC ==
[2019-11-30 13:45] LABS: ALBUMIN 3.7 GM/DL (3.2-5.2); ALT/SGPT 34 U/L (12-78); BILIRUBIN,TOTAL 0.4 MG/DL (0.2-1.0); BLOOD UREA NITROGEN 9 MG/DL (7-18); CALCIUM LEVEL 9.1 MG/DL (8.5-10.1); CARBON DIOXIDE LEVEL 29 MEQ/L (21-32); CHLORIDE LEVEL 105 MEQ/L (98-107); CREATININE FOR GFR 0.92 MG/DL (0.70-1.30); GLOMERULAR FILTRATION RATE > 60.0 (>60); GLUCOSE, FASTING 140 MG/DL (70-100); POTASSIUM SERUM 4.7 MEQ/L (3.5-5.1); SODIUM LEVEL 138 MEQ/L (136-145)
== END ==
LOC: M SFHCADAM 12:35
PROVIDERS: ATTEND Physician Assistant
DX: Z01.89 Encounter for other specified special examinations (principal)

== ENCOUNTER → 2020-01-09 | Outpatient (CLI) | payer BC ==
[~2020-01-09] MED LIST changes: +LISI-538 PO; +MAGN400C2 PO; +OMEP40CA97 PO
== END ==
LOC: M LABSMTC 11:44
PROVIDERS: ATTEND Anesthesiology
DX: Z01.812 Encounter for preprocedural laboratory examination (principal); Z20.828 Contact with and (suspected) exposure to other viral communicable diseases

== ENCOUNTER 2020-01-14 06:20 | Day surgery (SDC) | payer BC ==
[~2020-01-14] VITALS: Ht 172.7 cm; Wt 127.5 kg
[~2020-01-14 06:20] MED LIST changes: +LR 1,000 ML IV ONE
[2020-01-14] MEDS ORDERED: ISOVUE-300 61% 50ML VIAL As Ordered ONE (06:40)
[2020-01-14] MEDS ORDERED: MIDAZOLAM INJ 2MG/2ML VIAL (J2250 PER 1MG) As Ordered ONE (07:19)
[2020-01-14] MEDS ORDERED: fentaNYL 100 MCG/2 ML INJECTION (J3010) As Ordered ONE ×2 (07:20→07:49)
[2020-01-14] MEDS ORDERED: ONDANSETRON 4MG/2ML VIAL As Ordered ONE (07:20)
[2020-01-14] MEDS ORDERED: propofoL 200 MG/20 ML VIAL As Ordered ONE ×2 (07:20→07:34)
[2020-01-14] MEDS ORDERED: dexameTHASONE 4 MG/ML 1ML VIAL (J1100 PER 1MG) As Ordered ONE (07:20)
[2020-01-14] MEDS ORDERED: ROCURONIUM BROMIDE 50 MG/5 ML VIAL As Ordered ONE (07:20)
[2020-01-14] MEDS ORDERED: LIDOCAINE 2% 100MG/5ML SDV (FOR ANES.) As Ordered ONE (07:20)
[2020-01-14] MEDS ORDERED: SUCCINYLCHOLINE 100 MG/5 ML SYRINGE (J0330) As Ordered ONE (07:47)
[2020-01-14] MEDS ORDERED: SUGAMMADEX SODIUM 500 MG/5 ML VIAL (BRIDION) As Ordered ONE (07:56)
--- NOTE | 2020-01-14 08:46 | ROOR ---
Patient Name: Dashawn Guerrero Procedure Date: 01/14/2020 7:08 AM Date of : 1975 Age: 44 Room: [facility] Gender: Male Note Status: Finalized Procedure: ERCP Indications: Abnormal abdominal MRI, Elevated liver enzymes, Stent removal Providers: Phillip Hall MD Referring MD: PRINCESS Love Requesting Provider: Medicines: Monitored Anesthesia Care Complications: No immediate complications. Procedure: Pre-Anesthesia Assessment: - Prior to the procedure, a History and Physical was performed, and patient medications and allergies were reviewed. The patient is competent. The risks and benefits of the procedure and the sedation options and risks were discussed with the patient. All questions were answered and informed consent was obtained. Patient identification and proposed procedure were verified by the physician, the nurse and the anesthesiologist in the procedure room. Mental Status Examination: alert and oriented. Airway Examination: normal oropharyngeal airway and neck mobility. Respiratory Examination: clear to auscultation. CV Examination: normal. Prophylactic Antibiotics: The patient does not require prophylactic antibiotics. Prior Anticoagulants: The patient has taken no previous anticoagulant or antiplatelet agents. ASA Grade Assessment: II - A patient with mild systemic disease. After reviewing the risks and benefits, the patient was deemed in satisfactory condition to undergo the procedure. The anesthesia plan was to use monitored anesthesia care (MAC). Immediately prior to administration of medications, the patient was re-assessed for adequacy to receive sedatives. The heart rate, respiratory rate, oxygen saturations, blood pressure, adequacy of pulmonary ventilation, and response to care were monitored throughout the procedure. The physical status of the patient was re-assessed after the procedure. The Duodenoscope was introduced through the mouth, and advanced to the duodenum and used to inject contrast into the bile duct. The ERCP was accomplished without difficulty. The patient tolerated the procedure well. Findings: A biliary stent was visible on the service center manager film. The esophagus was successfully intubated under direct vision without detailed examination of the pharynx, larynx, and associated structures, and upper GI tract. The upper GI tract was grossly normal. One covered metal stent originating in the biliary tree was emerging from the major papilla. There was a gaping orifice at the major papilla. A biliary sphincterotomy had been performed. The sphincterotomy appeared open. One stent was removed from the biliary tree using a rat-toothed forceps. A 0.035 inch x 260 cm straight Hydra Jagwire was passed into the biliary tree. The short-nosed traction sphincterotome was passed over the guidewire and the bile duct was then deeply cannulated. Contrast was injected. I personally interpreted the bile duct images. Ductal flow of contrast was adequate. Image quality was adequate. Contrast extended to the entire biliary tree. The main bile duct was diffusely dilated, acquired. The largest diameter was 12 mm. The main bile duct contained filling defect(s) thought to be a stone and sludge. The lower third of the main bile duct contained a localized irregularity. There was no stenosis noted in the main bile duct. There is a prominent accessory duct joining the common bile duct in mid portion. The biliary tree was swept with a 12 mm balloon starting at the bifurcation. Debris was swept from the duct. Sludge was swept from the duct. Cells for cytology were obtained by brushing in the lower third of the main bile duct. Occlusion cholangiogram at the end of the procedure did not show any residual filling defects. Pancreatic duct was neither cannulated nor opacified. Impression: - One stent from the biliary tree was seen in the major papilla. - The major papilla appeared to have a gaping orifice. - One stent was removed from the biliary tree. - Prior biliary sphincterotomy appeared open. - A filling defect consistent with a stone and sludge was seen on the cholangiogram. - The entire main bile duct was dilated, acquired. - An irregularity was found in the lower third of the main bile duct. - The biliary tree was swept and debris and sludge were found. - Cells for cytology obtained in the lower third of the main duct. Recommendation: - The patient will be observed post-procedure, until all discharge criteria are met. - Patient has a contact number available for emergencies. The signs and symptoms of potential delayed complications were discussed with the patient. Return to normal activities tomorrow. Written discharge instructions were provided to the patient. - Clear liquid diet today, then advance as tolerated to high fiber diet. - Await cytology results. - Perform an upper endoscopic ultrasound (UEUS) at appointment to be scheduled. - Telephone GI clinic for pathology results in 2 weeks. - Return to primary care physician. Procedure Code(s): --- Professional --- 11971, Endoscopic retrograde cholangiopancreatography (ERCP); with removal of foreign body(s) or stent(s) from biliary/pancreatic duct(s) 92025, Endoscopic retrograde cholangiopancreatography (ERCP); with removal of calculi/debris from biliary/pancreatic duct(s) 21289, 26, Endoscopic catheterization of the biliary ductal system, radiological supervision and interpretation Diagnosis Code(s): --- Professional --- Z96.89, Presence of other specified functional implants K83.8, Other specified diseases of biliary tract R93.2, Abnormal findings on diagnostic imaging of liver and biliary tract Z46.59, Encounter for fitting and adjustment of other gastrointestinal appliance and device R74.8, Abnormal levels of other serum enzymes R93.5, Abnormal findings on diagnostic imaging of other abdominal regions, including retroperitoneum CPT copyright 2019 [employer]. All rights reserved. The codes documented in this report are preliminary and upon overhead cleaner review may be revised to meet current compliance requirements. Phillip Hall MD Phillip Hall MD 01/14/2020 8:45:41 AM Electronically signed by Phillip Hall MD Number of Addenda: 0 Note Initiated On: 01/14/2020 7:08 AM Estimated Blood Loss: Estimated blood loss: none.
--- NOTE | 2020-01-14 08:48 | REP ---
INDICATION: ERCP. COMPARISON: Comparison study October 02, 2019.. TECHNIQUE: 90 views. 70.6 seconds of fluoroscopy time is reported. FINDINGS: A sequence of 90 last image hold fluoroscopically obtained spot radiographs of the abdomen taken during ERCP document endoscopic cannulation, contrast injection, balloon catheter manipulation of the common bile duct. The bile duct stent appears to have been removed during the procedure. IMPRESSION: Procedural imaging. <Electronically signed by Jose Hansen > 01/14/20 0805
[2020-01-14] MEDS ORDERED: PERCOCET 5MG/325MG TAB PO PRN (09:15)
[2020-01-14] MEDS ORDERED: fentaNYL 100 MCG/2 ML INJECTION (J3010) IV PRN (09:15)
[2020-01-14] MEDS ORDERED: LR 1,000 ML IV SCH (09:15)
[2020-01-14] MEDS ORDERED: METOCLOPRAMIDE INJ 10MG/2ML VIAL (J2765 PER 1) IV PRN (09:15)
[2020-01-14] MEDS ORDERED: ONDANSETRON 4MG/2ML VIAL IV PRN (09:15)
[2020-01-14 09:55] VITALS: BP 119/69
== END 2020-01-14 09:57 | disposition home or self-care (01) ==
LOC: M SDC 06:20
PROVIDERS: ATTEND Internal Medicine Gastroenterology
DX: Z46.59 Encounter for fitting and adjustment of other gastrointestinal appliance and device (principal); R93.2 Abnormal findings on diagnostic imaging of liver and biliary tract; R93.5 Abnormal findings on diagnostic imaging of other abdominal regions, including retroperitoneum; K83.8 Other specified diseases of biliary tract; R74.8 Abnormal levels of other serum enzymes; I10 Essential (primary) hypertension; K21.9 Gastro-esophageal reflux disease without esophagitis; Z79.899 Other long term (current) drug therapy
CPT/HCPCS: 43264; 43275; 74330; 88104; J0330; J1100; J2250; J2405; J3010; Q9967

== ENCOUNTER → 2020-11-21 | Outpatient (REF) | payer BC ==
[~2020-11-21] MED LIST changes: -LISI-538 PO; +LISI20TA33 PO; -LR 1,000 ML IV ONE; +OMEP40CA4 PO; -OMEP40CA97 PO
[2020-11-21 17:02] LABS: HEMATOCRIT 46.6 % (42.0-52.0); HEMOGLOBIN 15.8 g/dl (13.5-17.5); MEAN CORPUSCULAR HEMOGLOBIN 31.7 pg (27.0-33.0); MEAN CORPUSCULAR HGB CONC 33.9 g/dl (32.0-36.5); MEAN CORPUSCULAR VOLUME 93.6 fl (80.0-96.0); PLATELET COUNT, AUTOMATED 302 10^3/uL (150-450); RED BLOOD COUNT 4.98 10^6/uL (4.30-6.10); WHITE BLOOD COUNT 12.3 10^3/uL (4.0-10.0)
[2020-11-21 17:28] LABS: ALBUMIN 3.9 GM/DL (3.2-5.2); ALT/SGPT 40 U/L (12-78); BILIRUBIN,TOTAL 0.7 MG/DL (0.2-1.0); BLOOD UREA NITROGEN 12 MG/DL (7-18); CARBON DIOXIDE LEVEL 29 MEQ/L (21-32); CHLORIDE LEVEL 104 MEQ/L (98-107); CHOLESTEROL LEVEL 176 MG/DL (<200); CHOLESTEROL RISK RATIO 2.983 (<5); GLOMERULAR FILTRATION RATE > 60.0 (>60); GLUCOSE, FASTING 88 MG/DL (70-100); HDL CHOLESTEROL 59 MG/DL (>40); LDL CHOLESTEROL 99 MG/DL (<100); NON-HDL-C 117 MG/DL; POTASSIUM SERUM 4.3 MEQ/L (3.5-5.1); SODIUM LEVEL 137 MEQ/L (136-145); TOTAL PROTEIN 7.3 GM/DL (6.4-8.2); TRIGLYCERIDES LEVEL 91 MG/DL (<150)
== END ==
LOC: M SFHCADAM 15:15
PROVIDERS: ATTEND Physician Assistant
DX: Z13.1 Encounter for screening for diabetes mellitus (principal); Z13.220 Encounter for screening for lipoid disorders; I10 Essential (primary) hypertension

== ENCOUNTER → 2020-11-24 | Outpatient (REF) | payer BC ==
[2020-11-24 13:46] LABS: MALB URINE SIEMENS 6.8 MG/L; MAU/CREAT RATIO 5.9 MCG/MG (0.0-30.0)
== END ==
LOC: M SFHCADAM 12:35
PROVIDERS: ATTEND Physician Assistant
DX: I10 Essential (primary) hypertension (principal); Z13.220 Encounter for screening for lipoid disorders; Z13.1 Encounter for screening for diabetes mellitus

== ENCOUNTER → 2021-11-19 | Outpatient (REF) | payer BC ==
[2021-11-19 13:41] LABS: HEMATOCRIT 46.6 % (42.0-52.0); HEMOGLOBIN 15.5 g/dl (13.5-17.5); MEAN CORPUSCULAR HEMOGLOBIN 31.8 pg (27.0-33.0); MEAN CORPUSCULAR HGB CONC 33.3 g/dl (32.0-36.5); MEAN CORPUSCULAR VOLUME 95.7 fl (80.0-96.0); PLATELET COUNT, AUTOMATED 296 10^3/uL (150-450); RED BLOOD COUNT 4.87 10^6/uL (4.30-6.10)
[2021-11-19 14:23] LABS: ALT/SGPT 33 U/L (12-78); BILIRUBIN,TOTAL 0.3 MG/DL (0.2-1.0); BLOOD UREA NITROGEN 12 MG/DL (7-18); CALCIUM LEVEL 9.5 MG/DL (8.5-10.1); CARBON DIOXIDE LEVEL 29 MEQ/L (21-32); CHLORIDE LEVEL 103 MEQ/L (98-107); CHOLESTEROL LEVEL 166 MG/DL (<200); CHOLESTEROL RISK RATIO 2.912 (<5); CREATININE FOR GFR 0.91 MG/DL (0.70-1.30); GLOMERULAR FILTRATION RATE > 60.0 (>60); GLUCOSE, FASTING 105 MG/DL (70-100); HDL CHOLESTEROL 57 MG/DL (>40); NON-HDL-C 109 MG/DL; POTASSIUM SERUM 4.8 MEQ/L (3.5-5.1); SODIUM LEVEL 136 MEQ/L (136-145); TRIGLYCERIDES LEVEL 307 MG/DL (<150)
[2021-11-19 14:24] LABS: ALBUMIN 4.1 GM/DL (3.2-5.2); CREATININE, URINE 20.3 MG/DL; LDL CHOLESTEROL 48 MG/DL (<100); MALB URINE SIEMENS < 5.0 MG/L; MAU/CREAT RATIO 24.6 MCG/MG (0.0-30.0); TOTAL PROTEIN 7.4 GM/DL (6.4-8.2)
[2021-11-19 15:43] LABS: HEMOGLOBIN A1c 5.6 %
== END ==
LOC: M SFHCADAM 10:15
PROVIDERS: ATTEND Physician Assistant
DX: K21.9 Gastro-esophageal reflux disease without esophagitis (principal); I10 Essential (primary) hypertension; E66.01 Morbid (severe) obesity due to excess calories; Z13.1 Encounter for screening for diabetes mellitus

== ENCOUNTER → 2022-03-09 | Outpatient (CLI) | payer BC ==
[~2022-03-09] MED LIST changes: +VITMTA PO
== END ==
LOC: M LABSMTC 09:26
PROVIDERS: ATTEND Anesthesiology
DX: Z01.812 Encounter for preprocedural laboratory examination (principal); Z11.52 Encounter for screening for COVID-19

== ENCOUNTER 2022-03-12 07:27 | Day surgery (SDC) | payer BC ==
[~2022-03-12] VITALS: Ht 172.7 cm; Wt 127.0 kg
[~2022-03-12 07:27] MED LIST changes: +NS 1,000 ML IV ONE
[2022-03-12] MEDS ORDERED: LIDOCAINE 2% 100MG/5ML SDV (FOR ANES.) As Ordered ONE (08:04)
[2022-03-12] MEDS ORDERED: propofoL 200 MG/20 ML VIAL As Ordered ONE (08:04)
[2022-03-12 09:25] VITALS: BP 132/58
== END 2022-03-12 09:33 | disposition home or self-care (01) ==
LOC: M OPP 07:27
PROVIDERS: ATTEND Internal Medicine Gastroenterology
DX: Z12.11 Encounter for screening for malignant neoplasm of colon (principal); K57.30 Diverticulosis of large intestine without perforation or abscess without bleeding; K64.4 Residual hemorrhoidal skin tags; K64.8 Other hemorrhoids; Z79.52 Long term (current) use of systemic steroids; Z79.899 Other long term (current) drug therapy; I10 Essential (primary) hypertension; Z96.89 Presence of other specified functional implants; Z90.49 Acquired absence of other specified parts of digestive tract; Z87.891 Personal history of nicotine dependence

== ENCOUNTER → 2022-05-25 | Outpatient (REF) | payer BC ==
[~2022-05-25] MED LIST changes: -NS 1,000 ML IV ONE
[2022-05-25 14:03] LABS: BLOOD UREA NITROGEN 13 MG/DL (9-23); CARBON DIOXIDE LEVEL 28 MMOL/L (20-31); CHLORIDE LEVEL 100 MMOL/L (98-107); CREATININE FOR GFR 0.85 MG/DL (0.70-1.30); FREE T4 0.92 NG/DL (0.89-1.76); GLOMERULAR FILTRATION RATE > 60.0 (>60); GLUCOSE, FASTING 79 MG/DL (60-100); POTASSIUM SERUM 4.1 MMOL/L (3.5-5.1); SODIUM LEVEL 137 MMOL/L (136-145); THYROID STIMULATING HORMONE 2.209 uIU/ML (0.55-4.78)
== END ==
LOC: M SFHCADAM 10:58
PROVIDERS: ATTEND Physician Assistant
DX: I10 Essential (primary) hypertension (principal); R53.82 Chronic fatigue, unspecified; R00.2 Palpitations; R40.0 Somnolence; E66.01 Morbid (severe) obesity due to excess calories

== ENCOUNTER → 2022-06-29 | Outpatient (CLI) | payer BC | LOC: M SLEEP HO 10:49 | PROVIDERS: ATTEND Nurse Practitioner Family | DX: R06.83 Snoring (principal) ==

== ENCOUNTER → 2023-04-01 | Outpatient (REF) | payer BC ==
[2023-04-01 16:59] LABS: ALKALINE PHOSPHATASE 75 U/L (46-116); ALT/SGPT 61 U/L (7.0-40); AST/SGOT 24 U/L (<34); BILIRUBIN,TOTAL 0.4 MG/DL (0.3-1.2); BLOOD UREA NITROGEN 10 MG/DL (9-23); CALCIUM LEVEL 8.8 MG/DL (8.5-10.1); CARBON DIOXIDE LEVEL 30 MMOL/L (20-31); CHLORIDE LEVEL 106 MMOL/L (98-107); CHOLESTEROL LEVEL 152 MG/DL (<200); CHOLESTEROL RISK RATIO 3.14 (<5); CREATININE FOR GFR 0.86 MG/DL (0.70-1.30); GLOMERULAR FILTRATION RATE > 60.0 (>60); GLUCOSE, FASTING 111 MG/DL (60-100); HDL CHOLESTEROL 48.4 MG/DL (>40); LDL CHOLESTEROL 64.8 MG/DL (<100); NON-HDL-C 103.6 MG/DL; POTASSIUM SERUM 4.4 MMOL/L (3.5-5.1); SODIUM LEVEL 140 MMOL/L (136-145); TOTAL PROTEIN 6.9 G/DL (5.7-8.2); TRIGLYCERIDES LEVEL 194 MG/DL (<150)
[2023-04-01 17:03] LABS: FOLATE 20.4 NG/ML (>5.4)
[2023-04-01 17:06] LABS: VITAMIN B12 LEVEL 418 PG/ML (211-911)
== END ==
LOC: M SFHCADAM 13:46
PROVIDERS: ATTEND Physician Assistant
DX: E66.01 Morbid (severe) obesity due to excess calories (principal); I10 Essential (primary) hypertension; K21.9 Gastro-esophageal reflux disease without esophagitis; Z13.220 Encounter for screening for lipoid disorders

== ENCOUNTER → 2024-04-02 | Outpatient (REF) | payer BC ==
[2024-04-02 13:29] LABS: HEMATOCRIT 48.3 % (42.0-52.0); MEAN CORPUSCULAR HEMOGLOBIN 32.6 pg (27.0-33.0); MEAN CORPUSCULAR HGB CONC 33.1 g/dl (32.0-36.5); MEAN CORPUSCULAR VOLUME 98.4 fl (80.0-96.0); PLATELET COUNT, AUTOMATED 252 10^3/uL (150-450); RED BLOOD COUNT 4.91 10^6/uL (4.30-6.10)
[2024-04-02 13:36] LABS: ALBUMIN 4.1 G/DL (3.2-5.2); ALKALINE PHOSPHATASE 68 U/L (40-129); ALT/SGPT 38 U/L (7.0-40); AST/SGOT 17 U/L (<34); BILIRUBIN,TOTAL 0.6 MG/DL (0.3-1.2); BLOOD UREA NITROGEN 16 MG/DL (9-23); CALCIUM LEVEL 9.7 MG/DL (8.5-10.1); CARBON DIOXIDE LEVEL 28 MMOL/L (20-31); CHLORIDE LEVEL 103 MMOL/L (98-107); CHOLESTEROL LEVEL 170 MG/DL (<200); CHOLESTEROL RISK RATIO 2.59 (<5); CREATININE FOR GFR 0.73 MG/DL (0.70-1.30); GLOMERULAR FILTRATION RATE > 60.0 (>60); GLUCOSE, FASTING 105 MG/DL (60-100); HDL CHOLESTEROL 65.5 MG/DL (>40); LDL CHOLESTEROL 90.9 MG/DL (<100); NON-HDL-C 104.5 MG/DL; POTASSIUM SERUM 4.5 MMOL/L (3.5-5.1); SODIUM LEVEL 142 MMOL/L (136-145); TRIGLYCERIDES LEVEL 68 MG/DL (<150)
[2024-04-02 14:33] LABS: HEMOGLOBIN A1c 4.9 % (4.0-6.0)
== END ==
LOC: M SFHCADAM 08:37
PROVIDERS: ATTEND Physician Assistant
DX: I10 Essential (primary) hypertension (principal); E66.01 Morbid (severe) obesity due to excess calories; K21.9 Gastro-esophageal reflux disease without esophagitis; Z13.220 Encounter for screening for lipoid disorders; Z13.1 Encounter for screening for diabetes mellitus

== ENCOUNTER → 2024-08-14 | Outpatient (REF) | payer BC | LOC: M SFHCDERM 15:27 | PROVIDERS: ATTEND Physician Assistant | DX: D23.39 Other benign neoplasm of skin of other parts of face (principal) ==